=== PATIENT | male | born 1950 | race Hispanic/Latino ===

== ENCOUNTER → 2022-01-09 | Outpatient (CLI) | payer OTHER, MEDICARE ==
[~2022-01-09] MED LIST: AMOX1TAB16 PO; ASPI-1197 PO; CYAN250014 PO; DONE5TAB33 PO; GABA-529 PO; GLIP10TA9 PO; IRON PO; LEVOTHYROXINE 88 MCG PO; LOSA100T2 PO; MEMA10TA55 PO; METF-446 PO; METO-408 PO; OMEP40CA21 PO; PRAV20TA4 PO
== END | disposition home or self-care (01) ==
LOC: RAH 14:25
PROVIDERS: ATTEND Internal Medicine
DX: S06.0X9A Concussion with loss of consciousness of unspecified duration, initial encounter (principal); S00.93XA Contusion of unspecified part of head, initial encounter; G31.9 Degenerative disease of nervous system, unspecified; M19.071 Primary osteoarthritis, right ankle and foot; M77.31 Calcaneal spur, right foot; M79.89 Other specified soft tissue disorders; X58.XXXA Exposure to other specified factors, initial encounter; Y93.89 Activity, other specified; Y92.89 Other specified places as the place of occurrence of the external cause; Y99.8 Other external cause status
CPT/HCPCS: 70450; 73610